=== PATIENT | male | born 1990 | race Caucasian/White ===

== ENCOUNTER 2019-01-13 09:52 | Emergency (ER) | payer SELFPAY ==
[2019-01-13 10:22] VITALS: BP 135/68
[2019-01-13] MEDS ORDERED: Tetan/Diph/Pertus SYR(Tdap)* 0.5 ML SYR(BOOSTRIX) use SYR IM ONE (10:38)
--- NOTE | 2019-01-13 10:38 | UC ---
Skin Complaint HPI - HPI Summary HPI Summary: Pt c/o puncture wound to lateral, plantar aspect of right foot that happened yesterday. Pt states that puncture wound area is painful to bear weight. Pt unsure of last tetanus. Pt denies any retained FB. Pt was wearing work boots - History of Current Complaint Chief Complaint: [facility] Time Seen by Provider: 01/13/19 10:29 Stated Complaint: RIGHT FOOT - SKIN Hx Obtained From: Patient Onset/Duration: Sudden Onset, Still Present - still painful Skin Exposure Onset/Duration: Hours Ago Timing: Constant Onset Severity: Moderate Current Severity: Moderate Pain Intensity: 4 Location: Discrete - right lateral plantar aspect, Foot (Right) Character: Pain, Painful Aggravating Factor(s): Touch Alleviating Factor(s): Other - rest, non weight bearing Associated Signs & Symptoms: Positive: Tenderness Related History: Trauma - stepped on nail - Allergy/Home Medications Allergies/Adverse Reactions: Allergies Allergy/AdvReac Type Severity Reaction Status Date / Time bee venom protein (honey bee) Allergy Anaphylatic Verified 01/13/19 10:15 Shock Home Medications: Home Medications Aspirin/Acetaminophen/Caffeine [Excedrin Extra Strength Caplet] 2 each PO ONCE PRN 01/13/19 [History Confirmed 01/13/19] PMH/Surg Hx/FS Hx/Imm Hx Previously Healthy: Yes - Surgical History Surgical History: Yes Surgery Procedure, Year, and Place: varicocele - Family History Known Family History: Positive: Cardiac Disease - Social History Occupation: Employed Full-time Lives: With Family Alcohol Use: Occasionally Substance Use Type: Marijuana Substance Use Comment - Amount & Last Used: occasional use Smoking Status (MU): Never Smoked Tobacco Have You Smoked in the Last Year: No - Immunization History Most Recent Tetanus Shot: unknown Vaccination Up to Date: No Review of Systems All Other Systems Reviewed And Are Negative: Yes Constitutional: Positive: Negative Skin: Positive: Other - puncture wound Eyes: Positive: Negative ENT: Positive: Negative Respiratory: Positive: Negative Cardiovascular: Positive: Negative Gastrointestinal: Positive: Negative Genitourinary: Positive: Negative Motor: Positive: Negative Neurovascular: Positive: Negative Musculoskeletal: Positive: Myalgia - at puncture site, Neurological: Positive: Negative Psychological: Positive: Negative Is Patient Immunocompromised?: No Physical Exam Triage Information Reviewed: Yes Appearance: Well-Appearing, Pain Distress - with PE of wound site Vital Signs: Initial Vital Signs Temp 97.7 F 01/13/19 10:16 Pulse 62 01/13/19 10:16 Resp 15 01/13/19 10:16 BP 135/68 01/13/19 10:16 Pulse Ox 97 01/13/19 10:16 Vital Signs Reviewed: Yes Eye Exam: Normal ENT Exam: Normal Dental Exam: Normal Neck exam: Normal Respiratory: Positive: No respiratory distress Musculoskeletal: Positive: Other: - puncture wound right mid, lateral plantar aspect of foot. no discharge, no erythema, Neurological Exam: Normal Psychological Exam: Normal Skin Exam: Other - puncture wound right mid, lateral plantar aspect of foot. no discharge, no erythema, Course/Dx - Differential Diagnoses - Skin Complaint Differential Diagnoses: Cellulitis, MRSA - Diagnoses Provider Diagnosis: Puncture wound of foot, right Discharge - Sign-Out/Discharge Documenting (check all that apply): Patient Departure All imaging exams completed and their final reports reviewed: No Studies - Discharge Plan Condition: Stable Disposition: HOME Prescriptions: Cephalexin CAP* [Keflex 500 CAP*] 500 mg PO Q8H #21 cap Patient Education Materials: Puncture Wound (ED) Referrals: Caio Thomas MD [Primary Care Provider] - If Needed - Billing Disposition and Condition Condition: STABLE Disposition: Home
== END 2019-01-13 10:54 | disposition home or self-care (01) ==
LOC: UCCORT 09:52
DX: S91.331A Puncture wound without foreign body, right foot, initial encounter (principal); W45.0XXA Nail entering through skin, initial encounter; Z91.030 Bee allergy status; Z79.82 Long term (current) use of aspirin
CPT/HCPCS: 90715; 99202; G0463